=== PATIENT | female | born 1970 | race African-American/Black ===

== ENCOUNTER 2018-08-25 07:08 | Day surgery (SDC) | payer BC, OTHER ==
[2018-08-12 15:30] VITALS: BMI 27.7
--- NOTE | 2018-08-18 11:43 | HP ---
Admitting History and Physical - Primary Care Physician PCP: María Ordaz - Admission Chief Complaint: Left breast atypia History of Present Illness: 47 year old premenapausal female with family H/O ovarian cancer and has a RAD50 mutation. Mammogram revealed left upper inner quadrant assymetry that persisted on compression veiws. US showed 3.4 cm mass left breast 10 to 11:00 1-5cm FN that has enlarged since last evaluation. Left US core bx showed ADH. Breast MRI : BIRAD 5, SUSPICIOUS 1.4 cm MASS 8 TO 9:00 LEFT BREAST with clip. History Source: Patient Limitations to Obtaining History: No Limitations - Past Medical History Cardiovascular: Yes: Other (MVP) Reproductive: Yes: Fibroids ...LMP: 07/31/18 Musculoskeletal: Yes: Other (Herniated disc) - Past Surgical History Past Surgical History: Yes: - Smoking History Smoking history: Current every day smoker Have you smoked in the past 12 months: Yes Aproximately how many cigarettes per day: 2 - Alcohol/Substance Use Hx Alcohol Use: Yes (SOCIAL) Home Medications - Allergies Allergies/Adverse Reactions: Allergies Allergy/AdvReac Type Severity Reaction Status Date / Time No Known Drug Allergies Allergy Verified 08/12/18 15:21 scallops Allergy Verified 06/10/18 10:06 - Home Medications Home Medications: Ambulatory Orders NK [No Known Home Medication] 08/12/18 Family Disease History - Family Disease History Family Disease History: CA: Grandparent (mat GM ovarian ca 48 //mat GF lung ca 65 ), Father (prostate ca 69) Physical Examination Constitutional: Yes: No Distress Breast(s): Yes: Other (diffusely nodular no palpable mass or adnopathy post bx thickening left breast in area of bx) Problem List - Problems (1) Atypical ductal hyperplasia of left breast Code(s): N60.92 - UNSPECIFIED BENIGN MAMMARY DYSPLASIA OF LEFT BREAST Assessment/Plan Left breast wide excision mammogram needle localization
[2018-08-25] MEDS ORDERED: MIDAZOLAM HCL 2 MG/2 ML SINGLE DOSE VIAL ONE (09:26)
[2018-08-25] MEDS ORDERED: PROPOFOL 20 ML ONE ×2 (09:26→10:17)
[2018-08-25] MEDS ORDERED: ONDANSETRON 4 MG/2 ML VIAL IVPUSH PRN ×2 (09:32→11:01)
[2018-08-25] MEDS ORDERED: KETOROLAC TROMETHAMINE 30 MG/1 ML VIAL IVPUSH PRN (09:32)
[2018-08-25] MEDS ORDERED: DEXTROSE 5%-0.45% SALINE 1,000 ML IV SCH (09:45)
[2018-08-25] MEDS ORDERED: LIDOCAINE HCL 1% PRESERVATIVE FREE - 30ML VIAL ONE (09:52)
[2018-08-25] MEDS ORDERED: BUPIVACAINE HCL/PF 2.5 MG/ML - 30 ML VIAL IJ ONE (09:52)
[2018-08-25] MEDS ORDERED: ONDANSETRON 4 MG/2 ML VIAL ONE (10:09)
[2018-08-25] MEDS ORDERED: KETOROLAC TROMETHAMINE 30 MG/1 ML VIAL ONE (10:09)
[2018-08-25] MEDS ORDERED: DEXAMETHASONE SOD PHOSPHATE 4 MG/1 ML VIAL ONE (10:09)
[2018-08-25] MEDS ORDERED: PROMETHAZINE HCL 25 MG/1 ML VIAL IVPUSH PRN (11:01)
[2018-08-25 11:10] VITALS: TEMP 98.2
--- NOTE | 2018-08-25 11:28 | OP ---
DATE OF OPERATION: 08/25/2018 PREOPERATIVE DIAGNOSIS: Left breast atypical ductal hyperplasia. POSTOPERATIVE DIAGNOSIS: Left breast atypical ductal hyperplasia. PROCEDURE: Left partial mastectomy with mammographic localization. ANESTHESIA: General intubated. ATTENDING SURGEON: Maged Daly MD CAREER GUIDANCE COUNSELOR: ENRIQUE Brewer ESTIMATED BLOOD LOSS: Minimal. COMPLICATIONS: None. DESCRIPTION OF PROCEDURE: The patient was made aware of the risks and benefits of the procedure and consented. Preoperatively, the patient had gone to the radiology suite where a needle and wire were placed next to the indexed lesion. She was then placed in a supine position. After general anesthesia was induced, the patient was intubated. The operative site was prepped and draped in the usual sterile fashion. A curvilinear periareolar incision was then made using electrocautery. Thick skin flaps were made. The needle was drawn through the puncture site and the wire through the wound. Tissues around the wire including an adjacent mass was then completely excised and submitted with a short suture superior, long suture lateral for margin assessment. Specimen radiograph confirmed the presence of the indexed lesion. The operative site was copiously irrigated with normal saline. Hemostasis maintained by electrocautery. The wound was then closed with a deep 3-0 Vicryl followed by a running subcuticular 4-0 Monocryl. Steri-Strips, sterile dressing, and a compression bra were then applied, and the patient, having tolerated the procedure well, was transferred to the recovery room in excellent condition. MAGED POWELL M.D. [id number]
[2018-08-25] MEDS ORDERED: oxyCODONE HCL 5 MG TABLET ONE (11:58)
[2018-08-25] MEDS ORDERED: oxyCODONE HCL 5 MG TABLET PO PRN (12:00)
[2018-08-25 12:54] VITALS: BP 120/64; PULSE 68
--- NOTE | 2018-08-31 13:50 | PATH ---
Surgical Pathology Report Patient Name: IRIS TORREZ [facility]. Rec. #: [id number] /Age/Gender: 1970 (Age: 48) / F Account: [id number] Location: [facility] Taken: 08/25/2018 Received: 08/25/2018 Reported: 08/31/2018 Physicians: María Ordaz M.D. 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 (See note) DCIS extensively involves sclerosing adenosis AND forms a mass measuring 1.8 cm in greatest dimension, microscopically. DCIS is present in six of nine slides (6/9). DCIS is close to (< 1mm) the superior and lateral margins. MICROINVASIVE carcinoma is at 6 mm from the closest (superior) margin. No lymphovascular invasion is identified. Focal prior biopsy site changes are identified. Remaining breast tissue shows intraductal papilloma, sclerosing adenosis, flat epithelial atypia (FEA), columnar cell change and cystic apocrine metaplasia with associated calcifications. Pathologic stage (pTNM): pT1(mi) pNx. see also carcinoma case summary below. Note: Myoepithelial immunohistochemical markers (SMM-HC & p63, performed at [facility] on blocks 1,2,3,4) demonstrate the lack of myoepithelial cells in the focus of microinvasive carcinoma. Additional suspicious foci demonstrate preservation of myoepithelial cells which supports these as being foci of DCIS with sclerosis and /or DCIS with lobular extension. See also prior slide review cases (our case #s: [id number], [id number] / outside institution case # [id number]). Comments Breast Invasive Carcinoma: Surgical Pathology Case Summary (Based on AJCC TNM 8 th edition) Procedure _X_ Excision (less than total mastectomy) Specimen Laterality _X_ Left Tumor Size _X_ Microinvasion only (=1 mm) Histologic Type _X_ Micro-invasive carcinoma Histologic Grade ([place] Histologic Score) Glandular (Acinar)/Tubular Differentiation _X_ Only microinvasion present (not graded) Nuclear Pleomorphism _X_ Only microinvasion present (not graded) Mitotic Rate _X_ Only microinvasion present (not graded) Overall Grade _X_ Only microinvasion present (not graded) Tumor Focality _X_ Single focus of (micro) invasive carcinoma Ductal Carcinoma In Situ (DCIS) _X_ DCIS is present in specimen _X_ Positive for EIC Margins Invasive Carcinoma Margins _X_ Uninvolved by(micro) invasive carcinoma Distance from closest margin (millimeters): 6 mm DCIS Margins _X_ Uninvolved by DCIS Distance from closest margin (millimeters) : > 1 mm from superior and lateral margins Regional Lymph Nodes _X_ No lymph nodes submitted or found Treatment Effect _X_ No known presurgical therapy Lymphovascular Invasion _X_ Not identified Pathologic Stage Classification (pTNM, AJCC 8th Edition) Primary Tumor (Invasive Carcinoma) (pT) _X_ pT1mi: Tumor =1 mm in greatest dimension Regional Lymph Nodes (pN) _X_ pNX: Regional lymph nodes cannot be assessed (eg, not removed for pathological study or previously removed) Biomarker Studies Results of ER, TX & Her2 studies will be reported separately in an addendum. Electronically Signed Lexi Morrow M.D. Addendum Reported: 09/07/2018 Addendum Diagnosis Results of ER, TX & Her2 (IHC) studies performed on block 1 (microinvasive carcinoma) at [place], [place] ([id number]) are as follows: ER (clone [id number] mouse monoclonal antibody by [employer]): 0 % nuclear staining (Negative). (see note) TX (clone16 mouse monoclonal antibody by [employer]): 0 % nuclear staining (Negative). Her2 IHC (EP3 from [employer], formerly known as [id number], using Martínez Polymer Refine detection kit): 0 (Negative). Note: DCIS shows ~10% nuclear staining with moderate to strong intensity (low positive) and is negative for TX. Positive and negative controls (internal if applicable) show appropriate results. Formalin fixation and cold ischemic times are within current ASCO/CAP recommendations for ER, TX and Her2 testing. Lexi Morrow M.D. Gross Description Received in formalin, labeled "left breast wide excision," is a 3.5 x 3.3 x 2.6 cm. arizmendi-yellow, irregular, portion of fibroadipose tissue. There is no needle localization wire present. There is a short suture marking the superior aspect and a long suture marking the lateral aspect, per the surgeon. There is no skin present. The specimen is inked as follows: Superior blue; anterior and lateral red; medial yellow; inferior green; deep black. The specimen is serially sectioned from anterior to deep. Sectioning reveals a 2.4 x 1.4 x 1.2 cm arizmendi, firm mass focally abutting the superior and medial margins. The mass is focally at 0.3 cm from the lateral margin and at 0.3 cm from the deep margin. [employer] Bone sections are submitted in 9 cassettes as follows: 1-3- full-face sections of mass with superior, medial and lateral margins; 4-mass with deep margin; 5-anterior margin; 6-inferior margin; 7-9- mass with superior, medial, lateral & deep margins. Time to formalin fixation: 1 minute Total formalin fixation time: Approximately 32 hours. 08/26/2018 [facility]08/26/2018
--- NOTE | 2018-08-31 14:28 | HP ---
History & Physical Update - History History: Change (see notes) (Patient is s/p left breast WE 08/25/2018 and was noted to have extensive DCIS involving the superior and lateral margins. Microinvasive carcinoma is at 6 mm from the closest margin superiorly. Patient is presenting for reexcision of margins.) - Physical Physical: No Change - Assessment Currently as noted:: Left breast cancer - Plan Currently as noted:: Left breast reexcision of positive margins
== END 2018-08-25 12:54 | disposition home or self-care (01) ==
LOC: FASU 07:08
PROVIDERS: ATTEND Surgery Surgical Oncology
PROC: 0HBU0ZZ Excision of Left Breast, Open Approach (ICD-10-PCS; principal; 2018-08-25 10:16)
DX: N60.92 Unspecified benign mammary dysplasia of left breast (principal); C50.912 Malignant neoplasm of unspecified site of left female breast; D05.12 Intraductal carcinoma in situ of left breast; D24.2 Benign neoplasm of left breast; N64.89 Other specified disorders of breast
CPT/HCPCS: 19281; 84703; 88307-TC; 88341-TC; 88342-TC; 94760

== ENCOUNTER 2018-09-01 11:49 | Day surgery (SDC) | payer BC, OTHER ==
[2018-08-31 17:17] VITALS: BMI 27.7
[2018-09-01] MEDS ORDERED: ISOSULFAN BLUE 10 MG/ML VIAL SQ ONE (14:58)
[2018-09-01] MEDS ORDERED: LIDOCAINE HCL 1% PRESERVATIVE FREE - 30ML VIAL ONE (14:59)
[2018-09-01] MEDS ORDERED: MIDAZOLAM HCL 2 MG/2 ML SINGLE DOSE VIAL ONE (15:40)
[2018-09-01] MEDS ORDERED: PROPOFOL 20 ML ONE ×2 (15:48→16:41)
[2018-09-01] MEDS ORDERED: ceFAZolin SODIUM 1 GM VIAL ONE (15:55)
[2018-09-01] MEDS ORDERED: ONDANSETRON 4 MG/2 ML VIAL ONE (16:10)
[2018-09-01] MEDS ORDERED: DEXAMETHASONE SOD PHOSPHATE 4 MG/1 ML VIAL ONE (16:10)
[2018-09-01] MEDS ORDERED: oxyCODONE HCL 5 MG TABLET PO PRN (16:31)
[2018-09-01] MEDS ORDERED: ONDANSETRON 4 MG/2 ML VIAL IVPUSH PRN ×2 (16:31→17:05)
[2018-09-01] MEDS ORDERED: BUPIVACAINE HCL/PF 2.5 MG/ML - 30 ML VIAL IJ ONE (16:34)
[2018-09-01] MEDS ORDERED: KETOROLAC TROMETHAMINE 30 MG/1 ML VIAL ONE (16:36)
[2018-09-01] MEDS ORDERED: LACTATED RINGERS SOLUTION 1,000 ML IV SCH (16:45)
[2018-09-01] MEDS ORDERED: BUPIVACAINE HCL/PF 0.25% (2.5MG/ML) 10 ML VIAL IJ ONE (16:49)
[2018-09-01] MEDS ORDERED: ONDANSETRON 4 MG/2 ML VIAL IVPUSH ONE (17:05)
[2018-09-01] MEDS ORDERED: KETOROLAC TROMETHAMINE 30 MG/1 ML VIAL IVPUSH ONE (17:15)
[2018-09-01] MEDS ORDERED: DEXTROSE 5%-0.45% SALINE 1,000 ML IV SCH (17:15)
[2018-09-01 17:56] VITALS: TEMP 97.8
[2018-09-01 18:54] VITALS: BP 120/71; PULSE 58
--- NOTE | 2018-09-01 21:37 | OP ---
DATE OF OPERATION: 09/01/2018 PREOPERATIVE DIAGNOSIS: Left breast cancer. POSTOPERATIVE DIAGNOSIS: Left breast cancer. PROCEDURE: Left breast partial mastectomy, complex tissue transfer, and left axillary sentinel node biopsy. ANESTHESIA: General intubated. ATTENDING SURGEON: Maged Ordaz MD SCRAP BURNER: ENRIQUE Tyler ESTIMATED BLOOD LOSS: Minimal. COMPLICATIONS: None. DESCRIPTION OF PROCEDURE: Patient was made aware of the risks and benefits of the procedure and consented. Preoperatively, she went to Nuclear Medicine where a radioactive tracer was injected into the peritumoral tissues. She was then placed in supine position on the operating room table, and after general anesthesia was induced, the patient was intubated. Next, 2.5 mL of 1% isosulfan blue were locally infiltrated in the peritumoral tissues. The operative site was prepped and draped in usual sterile fashion. Curvilinear incision was made in the left axilla. Using blunt and sharp dissection, tissues were dissected down, revealing a cluster of blue and hot lymph nodes. These were surgically excised and submitted for permanent sectioning. Interrogation of the rest of the axilla with palpation and the Neoprobe revealed no suspicious areas. The wound was copiously irrigated with normal saline. Hemostasis maintained by electrocautery. The wound was then closed with deep 3-0 Vicryl, followed by a running subcuticular 4-0 Monocryl. The breast was then approached. The prior incision was then opened up sharply with excision of the prior sutures. Once the entire cavity was opened up, additional segments were sharply excised superiorly and laterally, and clips were placed at the new margin. The wound was copiously irrigated with normal saline. Hemostasis maintained by electrocautery. The wound was then closed with deep 2-0 Vicryl, followed by deep, subdermal 3-0 Vicryl, followed by a running subcuticular 4-0 Monocryl. The tissues were then locally infiltrated with 0.5% bupivacaine. Steri-Strips, sterile dressing, and a compression bra were then applied, and the patient, having tolerated the procedure well, was transferred to the recovery room in excellent condition. MAGED ORDAZ M.D. [id number]
--- NOTE | 2018-09-04 15:48 | PATH ---
Surgical Pathology Report Patient Name: IRIS TORREZ [facility]. Rec. #: [id number] /Age/Gender: 1970 (Age: 48) / F Account: [id number] Location: [facility] Taken: 09/01/2018 Received: 09/01/2018 Reported: 09/04/2018 Physicians: María Ordaz M.D. Specimen(s) Received A: LEFT AXILLARY SENTINEL NODES B: LEFT BREAST SUPERIOR MARGIN C: LEFT BREAST LATERAL MARGIN Clinical History Left breast DCIS re-excision Final Diagnosis A. lymph nodes, left axillary sentinel, excision: Three lymph nodes, negative for metastatic carcinoma (0/3). B. breast, left, superior margin, excision: No residual in situ/invasive carcinoma is identified. Prior biopsy site changes are present. C. breast, left, lateral margin, excision: Focal atypical ductal hyperplasia (ADH). No residual in situ/invasive carcinoma is identified. Prior biopsy site changes are present. Note: See also prior left breast wide excision specimen ([id number]). Electronically Signed Lexi Morrow M.D. Gross Description A. Received in formalin labeled "left axillary sentinel nodes," are 3 lymph nodes ranging from 0.9-1.6 cm in greatest dimension. The lymph nodes are entirely submitted in 3 cassettes as follows: 1-3-one bisected lymph node each. B. Received in formalin labeled "left breast superior margin," is a 3.7 x 2.4 x 1.2 cm portion of fibroadipose tissue with clips marking the new margin, per the surgeon. The new margin is inked blue and the specimen is serially sectioned. The specimen is entirely submitted in 7 cassettes. C. Received in formalin labeled "left breast lateral margin," is a 3.2 x 3.1 x 1.1 cm portion of fibroadipose tissue with clips marking the new margin, per the surgeon. The new margin is inked blue and the specimen is serially sectioned. The specimen is entirely and sequentially submitted in 7 cassettes. Time to formalin fixation: 8 minutes Total formalin fixation time: Approximately 28 hours. 09/02/201809/02/2018
== END 2018-09-01 18:45 | disposition home or self-care (01) ==
LOC: FASU 11:49
PROVIDERS: ATTEND Surgery Surgical Oncology
PROC: 0HBU0ZZ Excision of Left Breast, Open Approach (ICD-10-PCS; principal; 2018-09-01 12:15)
PROC: 0HRU07Z Replacement of Left Breast with Autologous Tissue Substitute, Open Approach (ICD-10-PCS; 2018-09-01 12:15)
DX: C50.912 Malignant neoplasm of unspecified site of left female breast (principal)
CPT/HCPCS: 78195-TC; 84703; 88307-TC; 94760; A9541